=== PATIENT | male | born 1960 | race Caucasian/White ===

== ENCOUNTER → 2024-10-22 | Outpatient (CLI) | payer MEDICARE, OTHER ==
[2024-10-23 11:17] LABS: Stool Occult Bld Immuno 1 Negative (NEGATIVE)
== END ==
LOC: LAB 12:47 → LAB SHORT 12:47
DX: Z87.19 Personal history of other diseases of the digestive system (principal)
CPT/HCPCS: 82274

== ENCOUNTER → 2024-11-20 | Outpatient (CLI) | payer MEDICARE, OTHER | LOC: LAB 08:00 → LAB SHORT 08:00 | DX: E11.9 Type 2 diabetes mellitus without complications (principal) | CPT/HCPCS: 82043 ==